=== PATIENT | male | born 1980 | race Caucasian/White ===

== ENCOUNTER 2019-07-15 11:46 | Outpatient (CLI) | payer BC | END 2019-07-15 11:47 | disposition home or self-care (01) | LOC: CTENTCT 11:46 | PROVIDERS: ATTEND Student in an Organized Health Care Education/Training Program | DX: J32.9 Chronic sinusitis, unspecified (principal) | CPT/HCPCS: 36415; 70486; 80053; 80061; 81001; 85025 ==

== ENCOUNTER 2020-03-29 12:35 | Outpatient (CLI) | payer OTHER ==
[2020-03-29] MEDS ORDERED: EPINEPHrine 1 MG/ML AMP ONE (12:55)
[2020-03-29] MEDS ORDERED: Iopamidol 300 61% 50 ML VIAL FS ONE (12:55)
[2020-03-29] MEDS ORDERED: Lidocaine 1% PF 10 ML AMP ONE (12:55)
[2020-03-29] MEDS ORDERED: Gadobenate Dimeglumine 529 MG/1 ML (20ML VIAL) ONE (12:55)
--- NOTE | 2020-03-29 14:08 | RAD ---
RIGHT SHOULDER: 03/29/20 Three views. HISTORY: Shoulder pain. Humeral head is normally positioned. Mild spurring from the AC joint. AC alignment is preserved. No fracture or dislocation. IMPRESSION: Mild spurring at the AC joint. There may be mild spurring from the inferior glenoid as seen on the Y- view. No acute finding. POS: AGW
--- NOTE | 2020-03-29 14:53 | MRI ---
EXAM: MR arthrogram right shoulder PROVIDED CLINICAL HISTORY: Pain COMPARISON: None FINDINGS: There is full-thickness, full width retracted tearing of the supraspinatus tendon with retraction to about the level of the distal acromion. There is full-thickness partial width tearing involving the cranial-most fibers of the subscapularis. The infraspinatus and teres minor tendons remain intact. Th e long head biceps tendon appears intact and normally located. The glenoid labrum and glenohumeral articular cartilage appear preserved. Acromioclavicular joint osteoarthrosis is demonstrated, producing mass effect upon the subjacent supr aspinatus. Conspicuous subacromial subdeltoid bursal fluid on the basis of the rotator cuff defect, with intra-articular body seen within the medial subacromial bursa measuring about 6 mm. No focal concerning regional marrow or muscular signal abnormality apparent. Rotator cuff muscular vo lume appears preserved. IMPRESSION: 1. Full-thickness supraspinatus and subscapularis tendon tears as described. 2. Acromioclavicular joint osteoarthrosis.
--- NOTE | 2020-03-30 08:10 | RAD ---
Arthrogram right shoulder: DATE: 03/29/2020 HISTORY: 39-year-old male with ICD-10: "M 25.511, acute pain of right shoulder" TECHNIQUE: Signed informed consent obtained. Advisory Application Developer radiographic images of right shoulder obtained, 3 views. Ante rior skin of right shoulder prepared and draped in usual sterile fashion. 25-gauge needle used to apply buffered lidocaine superficially. 22-gauge spinal needle advanced into the glenohumeral subcaps ular space under fluoroscopic guidance. A total of 12 mL of normal saline solution containing MultiHance, Isovue, lidocaine, and epinephrine, was injected into the subcapsular space. Needle remov ed. Patient tolerated procedure well. No complications. FINDINGS: Advisory Application Developer images demonstrate moderate DJD at AC joint. Postinjection images demonstrate injected contrast material throughout the subacromial-subdeltoid bursa. IMPRESSION: 1. Full-thickness rotator cuff tear. 2. Osteoarthrosis of acromioclavicular joint. 3. See separate report of MR arthrogram.
== END 2020-03-29 12:36 | disposition home or self-care (01) ==
LOC: RAD 12:35
PROVIDERS: ATTEND Orthopaedic Surgery
DX: M25.511 Pain in right shoulder (principal); M75.121 Complete rotator cuff tear or rupture of right shoulder, not specified as traumatic; M19.011 Primary osteoarthritis, right shoulder
CPT/HCPCS: 23350; A9577; J0171; J2001; Q9967

== ENCOUNTER 2020-04-10 05:43 | Outpatient (CLI) | payer OTHER ==
[2020-04-10 12:17] LABS: #Eosinphils 0.2 thou/uL (0.0-0.7); #Lymphocytes 1.8 thou/uL (1.20-3.40); #Monocytes 0.6 thou/uL (0.11-0.59); #Neutrophils 4.7 thou/uL (1.40-6.50); %Basophils 0.6 % (0.0-1.0); %Lymphocytes 24.6 % (21.0-51.0); %Monocytes 8.7 % (0.0-10.0); %Neutrophils 63.2 % (42.0-75.0); Hemoglobin 16.6 g/dL (14.0-18.0); Mean Corpuscular HGB CONC 33.1 g/dL (32.0-36.0); Mean Corpuscular Hemoglobin 32.4 pg (27.0-31.0); Mean Platelet Volume 7.9 fL (7.4-10.4); Platelet Count 261 thou/uL (130-400); RBC Distribution Width 12.9 % (11.5-14.5); Red Blood Cell (RBC) Count 5.11 mill/uL (4.70-6.10); White Blood Cell (WBC) Count 7.4 thou/uL (4.8-10.8)
[2020-04-11 13:12] LABS: SARS-CoV-2 MS2 Positive; SARS-CoV-2 N Gene Negative; SARS-CoV-2 S Gene Negative; SARS-CoV-2 orf1ab Negative
== END 2020-04-10 05:44 | disposition home or self-care (01) ==
LOC: LABBT 05:43
PROVIDERS: ATTEND Orthopaedic Surgery
DX: Z01.812 Encounter for preprocedural laboratory examination (principal); Z11.59 Encounter for screening for other viral diseases
CPT/HCPCS: 87635; U0003

== ENCOUNTER → 2020-04-13 | Day surgery (SDC) | payer OTHER ==
[2020-04-10 13:23] VITALS: BMI 29.5
[~2020-04-13] MED LIST: Bupivacaine/Epinephrine 0.25% 30 ML VIAL ONE; Dexamethasone 20 MG/5 ML VIAL ONE; Fentanyl 100 MCG/2 ML VIAL IV PRN; Fentanyl 100 MCG/2 ML VIAL ONE; Glycopyrrolate 0.2 MG/ML 5 ML SYRINGE ONE; HYDROcodone/Acetaminophen 10/325 mg Tablet PO PRN; Ketorolac Tromethamine 30 MG/ML VIAL IVP PRN; Ketorolac Tromethamine 30 MG/ML VIAL ONE; Lidocaine 1% (PF) 30 ML VIAL ONE; Lidocaine 1% PF 5 ML VIAL ONE; Midazolam HCl 2 mg/2 ml Vial ONE; Ondansetron PF 4 MG/2 ML Vial IVP PRN; Ondansetron PF 4 MG/2 ML Vial ONE; PROPOFOL 200 MG/20 ML VIAL ONE; Promethazine HCl 25 MG/ML VIAL IM PRN; Rocuronium Bromide 10 MG/ML (10ML VIAL) ONE; Ropivacaine 0.2% 550 ML 550 ML NERVE BLCK SCH; Ropivacaine 0.2% HCl/PF (40 MG/20 ML VIAL) ONE; Ropivacaine 0.5% HCl/PF (150 MG/30 ML VIAL) ONE; Sodium Chloride 0.9% 10 ML ONE; Zolpidem Tartrate 5 MG TAB PO PRN; traMADol HCl 50 MG TAB PO PRN
--- NOTE | 2020-04-14 07:10 | OP ---
DATE OF PROCEDURE: 04/13/2020 PREOPERATIVE DIAGNOSES: 1. Leading edge subscapularis tear. 2. Full-thickness supraspinatus tear/infraspinatus tear. POSTOPERATIVE DIAGNOSES: 1. Leading edge subscapularis tear. 2. Full-thickness supraspinatus tear/infraspinatus tear. PROCEDURE PERFORMED: Rotator cuff repair. SPORTS MEDICINE SPECIALIST: None. ANESTHESIA: Villatoro. The patient received a general endotracheal intubation with interscalene block. ESTIMATED BLOOD LOSS: Less than 30 mL. TOURNIQUET TIME: None. ANTIBIOTICS: Ancef 2 g. IMPLANTS: Two 5.5 metal corkscrews, double loaded with a 4.75 BioComposite SwiveLock x2 and a 2.9 PushLock. COMPLICATIONS: None. INDICATIONS FOR PROCEDURE: Mr. Newell is a 39-year-old male, who is well known to us, who has a history of right shoulder pain, which has been present for over a year. 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 The patient is unable to sleep, presented with MRI evidence showing a full-thickness tear of supraspinatus/infraspinatus and leading edge of the subscapularis. I discussed risks and benefits of arthroscopic right rotator cuff repair with possible biceps tenodesis. We discussed risks and benefits of the surgery to include pain, scar, bleeding, infection, damage to vital structures, decreased range of motion and strength, continued pain despite surgical intervention, Chivo deformity, failure of repair, loss of life or limb. The patient understood the risks and benefits of procedure and elected to proceed. DESCRIPTION OF PROCEDURE: Time-out was performed designating the patient's right upper extremity as the operative site based on site, consents, and marking. The patient had been placed in beach chair position with bony prominences well padded. After time-out, the patient's posterior working portal was placed. Anterior working portal was placed, visualized intra-articularly. There was no full-thickness labral tear. There was a sublabral foramen. The biceps looked completely clean throughout its course tracking directly into the bicipital groove. The leading edge of the supraspinatus had been torn off. The subscapularis also had a full-thickness leading edge tear. Given this, I placed my anterolateral portal and placed a cannula through the rotator interval. I used a Scorpion device to pass a FiberWire suture into the leading edge of the subscapularis creating a luggage-handle stitch through the cuff. I placed a 2.9 PushLock in its footprint, which I cleaned off a spot to help put on the leading edge of the footprint and anchored down the patient's leading edge of subscapularis tear. I cut the sutures. I looked at the biceps throughout its course. There was no irritation and no erythema. It did not abut the subscapularis, and therefore, I left it in place given its almost perfect quality. I had seen the rotator cuff tear and moved subacromially. There was a large supraspinatus and infraspinatus tear. I used the shaver. I had to clean up some of the bursa and placed a lateral working portal and placed a shaver to shave and burred to create bleeding bone for reinserting onto the footprint, even taking 2 to 3 mm of cartilage to help with the re-insertion. I placed cannulas anteriorly and laterally and then started placing first a 5.5 metal corkscrew just off the biceps posteriorly, right off the articular cartilage, anchored into place. I used that to pass 4 stitches, one a little bit through the interval and through the leading edge of the supraspinatus to help with closure anteriorly. I then placed another stab incision with spinal needle just posterior to where my lateral portal was off the posterior edge of the acromion to help with the placement of a second 5.5 corkscrew, which I screwed into place. I used that to pass sutures through the remainder of the cuff for suture limbs. I tied knots from posterior to anterior and then placed a 4.75 SwiveLock laterally to compress the cuff down. I was pleased with my overall repair. I ensured throughout passing of the suture that I stayed out of the biceps so as not to tether it. I washed, then I closed my portals after I had cut my knots and removed all other sutures, took final pictures and closed with 3-0 nylon. The patient will be on elbow, wrist and hand motion, follow up with me in about 2 weeks, begin passive range of motion exercise. Job ID: [id number] [facility]
== END ==
LOC: SDC 07:24
PROVIDERS: ATTEND Orthopaedic Surgery
PROC: 3E0T3BZ Introduction of Anesthetic Agent into Peripheral Nerves and Plexi, Percutaneous Approach (ICD-10-PCS; principal; 2020-04-13)
PROC: 0LQ14ZZ Repair Right Shoulder Tendon, Percutaneous Endoscopic Approach (ICD-10-PCS; principal; 2020-04-13)
DX: S46.011A Strain of muscle(s) and tendon(s) of the rotator cuff of right shoulder, initial encounter (principal); M67.921 Unspecified disorder of synovium and tendon, right upper arm; G89.18 Other acute postprocedural pain; I10 Essential (primary) hypertension; E78.00 Pure hypercholesterolemia, unspecified; E78.5 Hyperlipidemia, unspecified; W18.30XA Fall on same level, unspecified, initial encounter; Z87.891 Personal history of nicotine dependence; Z79.84 Long term (current) use of oral hypoglycemic drugs
CPT/HCPCS: A4306; C1713; J0690; J1100; J1885; J2001; J2250; J2405; J2704; J2795; J3010

== ENCOUNTER → 2020-04-14 | Day surgery (SDC) | payer OTHER ==
[~2020-04-14] MED LIST changes: +Bupivacaine HCl 0.5%/Epinephrine 1:200,000/PF 30 ml Vial ONE; -Bupivacaine/Epinephrine 0.25% 30 ML VIAL ONE; -Dexamethasone 20 MG/5 ML VIAL ONE; -Fentanyl 100 MCG/2 ML VIAL IV PRN; -Fentanyl 100 MCG/2 ML VIAL ONE; -Glycopyrrolate 0.2 MG/ML 5 ML SYRINGE ONE; -HYDROcodone/Acetaminophen 10/325 mg Tablet PO PRN; -Ketorolac Tromethamine 30 MG/ML VIAL IVP PRN; -Ketorolac Tromethamine 30 MG/ML VIAL ONE; -Lidocaine 1% (PF) 30 ML VIAL ONE; -Lidocaine 1% PF 5 ML VIAL ONE; -Midazolam HCl 2 mg/2 ml Vial ONE; -Ondansetron PF 4 MG/2 ML Vial IVP PRN; -Ondansetron PF 4 MG/2 ML Vial ONE; -PROPOFOL 200 MG/20 ML VIAL ONE; -Promethazine HCl 25 MG/ML VIAL IM PRN; -Rocuronium Bromide 10 MG/ML (10ML VIAL) ONE; -Ropivacaine 0.2% 550 ML 550 ML NERVE BLCK SCH; -Ropivacaine 0.2% HCl/PF (40 MG/20 ML VIAL) ONE; -Ropivacaine 0.5% HCl/PF (150 MG/30 ML VIAL) ONE; -Sodium Chloride 0.9% 10 ML ONE; -Zolpidem Tartrate 5 MG TAB PO PRN; -traMADol HCl 50 MG TAB PO PRN
== END ==
LOC: SDC/OP 08:43
PROVIDERS: ATTEND Anesthesiology
PROC: 3E0T3BZ Introduction of Anesthetic Agent into Peripheral Nerves and Plexi, Percutaneous Approach (ICD-10-PCS; principal; 2020-04-14)
DX: S46.011A Strain of muscle(s) and tendon(s) of the rotator cuff of right shoulder, initial encounter (principal)
CPT/HCPCS: J0670